=== PATIENT | female | born 1930 | race Caucasian/White ===

== ENCOUNTER → 2016-10-31 | Outpatient (CLI) | payer MEDICARE, BC ==
[~2016-10-31] MED LIST: ACCUPRIL40 MG PO; ALDACTONE25 MG PO; AMLODIPINE BES2.5 MG PO; ANTIVERT25 MG PO; ASPIRIN LO-DOSE81 MG PO; CEFTIN250 MG; CEFTIN250 MG PO; CENTRUM SILVER1 EAC1 PO; CENTRUM SILVER1 TAB PO; COLCRYS0.6 MG PO; COREG25 MG PO; CPAP; DELTASONE10 MG PO; DELTASONE20 MG PO; DIOVAN160 MG PO; DULERA 200 MCG/51 EA INH; FLOVENT 220 M220 MCG INH; IMODIUM2 MG PO; KEFLEX500 MG PO; LANTUS (IN100 UNIT/M SUB-Q; LANTUS SOL100 UNIT/1 SUB-Q; MAG-OX-400(241400 MG PO; MECLIZINE HCL25 MG PO; MUCINEX600 MG PO; NITROGLYCERIN4.9 GM SL; NORVASC2.5 MG PO; NYSTATIN1 EAC1 TOP; OMNICEF 300MG300 MG PO; OSCAL + D500 MG PO; PRAVACHOL80 MG PO; PRILOSEC20 M1 PO; PRILOSEC20 MG PO; PROVENTIL OR V6.7 GM INH; ROBITUSSIN DAC PO; SPIRIVA HANDIHA1 KIT INH; SYNTHROID150 MCG PO; TESSALON PERLE100 MG PO; TYLENOL EXTRA500 MG PO; TYLENOL325 MG PO; XARELTO15 MG PO; ZITHROMAX250 MG PO; ZYLOPRIM100 MG PO
== END ==
LOC: LNHI 14:00
DX: I10 Essential (primary) hypertension (principal); I50.42 Chronic combined systolic (congestive) and diastolic (congestive) heart failure; R53.1 Weakness; J44.9 Chronic obstructive pulmonary disease, unspecified; E11.65 Type 2 diabetes mellitus with hyperglycemia; E66.01 Morbid (severe) obesity due to excess calories

== ENCOUNTER → 2016-12-06 | Outpatient (CLI) | payer MEDICARE, BC | END | disposition disaster alternative care site (69) | LOC: GRAD 15:01 | DX: R06.02 Shortness of breath (principal); I51.7 Cardiomegaly; R53.83 Other fatigue; R79.1 Abnormal coagulation profile | CPT/HCPCS: Q9967 ==

== ENCOUNTER → 2016-12-06 | Outpatient (CLI) | payer MEDICARE, BC | END | disposition disaster alternative care site (69) | LOC: LKCL 11:22 | DX: R19.7 Diarrhea, unspecified (principal) ==

== ENCOUNTER → 2017-01-08 | Outpatient (CLI) | payer MEDICARE, BC ==
--- NOTE | ~2017-01-08 | PUL ---
PATIENT'S NAME: KENNY COLE [facility] AGE: 86 Y [address] ROOM: [place], [place] [address] LOCATION: [facility] ADMIT DATE: 01/08/2017 Pulmonary DISCHARGE DATE: FAMILY PHYSICIAN: Jolene Izaguirre MD ATTENDING PHYSICIAN: Ifeoma Macedo NAME OF PROCEDURE: Sleep study PROCEDURE DATE: 01/08/17 TECH: OPAL Díaz TEST #: [facility]# [id number] TECHNICAL PARAMETERS: The patient was studied using International 10/20 measuring system. While the patient was studied, there was continuous monitoring of EEG (8 leads), EOG (2 leads), EKG (3 leads), submental EMG (3 leads), tibial (4 leads), respiratory inductive plethysmography (RIP) for thoracic and abdominal effort, oral and nasal airflow with a thermocouple and pressure transducer, and oximetry. The ballistic technician also performed visual and auditory observations noting things like body position, patient's status, breath sounds, artifact, snoring level and patient comments. Continuous sound was monitored using a 2-way speaker system and video monitoring was performed using an infrared camera. Review of the entire study was performed epoch by epoch utilizing a single epoch and multiple epoch capability sleep system. MEDICAL HISTORY: Patient is an 86-year-old overweight woman with daytime sleepiness and snoring. She has a prior history of obstructive sleep apnea. SLEEP STAGE SUMMARY: The patient was studied for 475 minutes of which she slept 362 minutes. She fell asleep in 41 minutes and slept for 76% of the night. Sleep architecture revealed a decline in slow wave and REM sleep. RESPIRATORY SUMMARY: Oxygen saturations ranged from 84-92%. Prior to initiating CPAP there were 52 apneas and 67 hypopneas for an apnea/hypopnea index moderately elevated at 39 events per hour. CPAP was initiated and titrated to 10 cm with good control of the respiratory events. EKG SUMMARY: No significant dysrhythmias were noted. LIMB MOVEMENT SUMMARY: Periodic limb movements were noted early in the study. These decreased as control of the sleep apnea was achieved. ASSESSMENT: Obstructive sleep apnea responsive to CPAP at 10 cm. PATIENT'S NAME: KENNY COLE [facility] AGE: 86 Y [address] ROOM: [place], [place] [address] LOCATION: [facility] ADMIT DATE: 01/08/2017 Pulmonary DISCHARGE DATE: FAMILY PHYSICIAN: Jolene Izaguirre MD ATTENDING PHYSICIAN: Ifeoma Macedo PLAN: Patient will receive results from the ordering provider. FABIAN CHAKRABORTY MD /[id number] dtt: 01/31/17 1300 Fabian David E. dtd: 01/14/17 1457
== END | disposition disaster alternative care site (69) ==
LOC: GSLP 20:10
DX: G47.33 Obstructive sleep apnea (adult) (pediatric) (principal)

== ENCOUNTER → 2017-01-16 | Outpatient (CLI) | payer MEDICARE, BC ==
--- NOTE | ~2017-01-16 | PUL ---
PATIENT'S NAME: KENNY COLE [facility] AGE: 86 Y [address] ROOM: [place] [address] LOCATION: [facility] ADMIT DATE: 01/16/2017 Pulmonary DISCHARGE DATE: [facility] PHYSICIAN: Jolene Izaguirre MD ATTENDING PHYSICIAN: CHAVA CHANDRA NAME OF PROCEDURE: Pulmonary Function Test DATE OF PROCEDURE: January 16, 2017 TECH: BIBI Sawyer REASON FOR EXAM: Asthma RESULTS: 1. FVC was 1.62 liters which is 69% of predicted and low, FEV1 was 1.31 liters which is 75% of predicted and low, and FEV1/FVC was 81% and normal. After bronchodilator administration FVC increased to 1.77 liters which is a 9% increase and FEV1 increased to 1.48 liters which is a 13% increase. 2. DLCO was 9.1 with an adjusted DLCO of 8.6 which is 37% of predicted and low. 3. Total lung capacity was 3.17 liters which is 68% of predicted and low, and residual volume was 1.37 liters which is 66% of predicted and low. PHYSICIAN INTERPRETATION: The patient has no airflow limitation and no significant bronchodilator response. Her diffusion capacity is severely low. There is evidence of mild restrictive lung disease. MD MICHELLE MOULTON/hernandez /[id number] dtt: 01/20/17 0913 COR[place]ON RADU F dtd: 01/19/17 2208
== END | disposition disaster alternative care site (69) ==
LOC: GRTH 08:37
DX: J45.909 Unspecified asthma, uncomplicated (principal); J98.4 Other disorders of lung